=== PATIENT | female | born 1960 | race Caucasian/White ===

== ENCOUNTER → 2017-05-27 | Outpatient (CLI) | payer OTHER | LOC: FIMAGING 09:10 | PROVIDERS: ATTEND Internal Medicine | DX: Z12.31 Encounter for screening mammogram for malignant neoplasm of breast (principal) | CPT/HCPCS: G0202 ==

== ENCOUNTER → 2017-06-27 | Outpatient (CLI) | payer OTHER | LOC: FIMAGING 15:04 | PROVIDERS: ATTEND Internal Medicine Endocrinology, Diabetes & Metabolism | DX: Z13.820 Encounter for screening for osteoporosis (principal); M81.0 Age-related osteoporosis without current pathological fracture; M54.9 Dorsalgia, unspecified; Z78.0 Asymptomatic menopausal state; Z79.890 Hormone replacement therapy ==

== ENCOUNTER → 2018-04-29 | Outpatient (CLI) | payer OTHER | LOC: BMCIMAGING 13:34 | PROVIDERS: ATTEND Physician Assistant | DX: M25.512 Pain in left shoulder (principal) ==

== ENCOUNTER → 2018-05-04 | Outpatient (CLI) | payer OTHER | LOC: BMCIMAGING 14:39 | PROVIDERS: ATTEND Physician Assistant | DX: M50.322 Other cervical disc degeneration at C5-C6 level (principal) ==

== ENCOUNTER 2018-12-23 15:45 | Emergency (ER) | payer OTHER ==
[2018-12-23] MEDS ORDERED: NS 500 ML IV ONE (16:36)
[2018-12-23] MEDS ORDERED: KETOROLAC 30 MG/1 ML SDV IVP ONE (16:37)
--- NOTE | 2018-12-23 16:37 | EDPHY ---
H & P Time Seen by Provider: 12/23/18 16:23 HPI/ROS: CHIEF COMPLAINT: Abdominal pain HISTORY OF PRESENT ILLNESS: The patient is a 58-year-old female presents emergency department with left-sided abdominal pain. Pain is been present for 1 -2 months. Her symptoms come and go. He seemed to be more associated with eating. Her pain is always on the left side. However, it moves up and down on the left side sometimes to her left flank. Patient denies any nausea or vomiting. No fevers or chills. No diarrhea. REVIEW OF SYSTEMS: 10 systems were reveiwed and are negative with the exception of the elements mentioned in the history of present illness. Past Medical/Surgical History: Includes hysterectomy and hip replacement Social history: Patient does not smoke Smoking Status: Never smoked Physical Exam: Vitals noted GENERAL: Well-appearing, in no acute distress, alert. HEENT: Eyes normal to inspection, normal pharynx, no signs of dehydration. NECK: Normal, supple. RESPIRATORY: Clear to auscultation bilaterally, no rales, rhonchi or wheezing. CVS: Regular rate and rhythm, no rubs, murmurs, or gallops. ABDOMEN: Soft, nontender, nondistended, no organomegaly. Benign BACK: Normal to inspection, no CVA tenderness. SKIN: Normal color, no rash, warm, dry. No pallor. EXTREMITIES: No pedal edema, no joint swelling. NEURO/PSYCH: Alert and oriented, normal mood and affect, normal motor sensory exam. Constitutional: Initial Vital Signs Temperature (C) 36.8 C 12/23/18 15:48 Heart Rate 90 12/23/18 15:48 Respiratory Rate 16 12/23/18 15:48 Blood Pressure 134/85 H 12/23/18 15:48 O2 Sat (%) 97 12/23/18 15:48 O2 Delivery Mode Room Air Allergies/Adverse Reactions: No Allergies [NKDA] Allergy (Verified 03/04/13 15:14) SEASONAL Allergy (Intermediate, Uncoded 03/04/13 15:14) POST NASAL DRIP Home Medications: Medication Instructions Recorded NK [No Known Home Meds] 12/23/18 Medical Decision Making - Diagnostics Imaging Results: Imaging Impressions Abdomen/Pelvis CT 12/23/18 16:37 Impression: 1. Nonobstructive calculus lower pole right kidney. 2. No evidence of urinary tract calculus in the left. 3. Mild constipation. Attention: This CT examination is specifically designed to evaluate patients who are clinically suspected of having acute obstructive uropathy. This examination does not use radiographic contrast, and as such, provides only a limited evaluation of the abdomen, pelvis and retroperitoneum. If there is further clinical suspicion for pathological conditions other than obstructive uropathy, a complete CT evaluation of the abdomen and pelvis utilizing intravenous, oral, and rectal contrast should be considered. Findings discussed with Mile Rogers M.D. at 17:30 hour, 12/23/2018. ED Course/Re-evaluation: In the Emergency department I discussed possible etiologies with the patient. I answered all her questions. IV was placed. Laboratory studies and abdominal CT were ordered. Patient's CBC and chemistry unremarkable. LFTs and lipase are normal. UA negative. CT: Please refer the dictated report. Patient has constipation noted. There is a right renal stone that is nonobstructing. No other abnormality noted. I discussed the results with the patient. I answered all her questions. She was given warnings prior to leaving. She will return with worsening symptoms. Differential Diagnosis: Differential includes but is not limited to small-bowel obstruction, perforation , urinary tract infection, pyelonephritis, kidney stone. With left-sided pain is less likely cholecystitis, cholangitis. Lipase was normal. I doubt pancreatitis. - Data Points Laboratory Results: Laboratory Results 12/23/18 16:40 12/23/18 16:40 12/23/18 12/23/18 12/23/18 16:40 16:40 16:00 WBC 5.16 10^3/uL 10^3/uL (3.80-9.50) RBC 5.56 10^6/uL H 10^6/uL (4.18-5.33) Hgb 16.2 g/dL g/dL (12.6-16.3) Hct 48.9 % H % (38.0-47.0) MCV 87.9 fL fL (81.5-99.8) MCH 29.1 pg pg (27.9-34.1) MCHC 33.1 g/dL g/dL (32.4-36.7) RDW 13.1 % % (11.5-15.2) Plt Count 256 10^3/uL 10^3/uL (150-400) MPV 9.7 fL fL (8.7-11.7) Neut % (Auto) 65.6 % % (39.3-74.2) Lymph % (Auto) 26.4 % % (15.0-45.0) [place] % (Auto) 6.8 % % (4.5-13.0) Eos % (Auto) 0.2 % L % (0.6-7.6) Baso % (Auto) 0.8 % % (0.3-1.7) Nucleat RBC Rel Count 0.0 % % (0.0-0.2) Absolute Neuts (auto) 3.39 10^3/uL 10^3/uL (1.70-6.50) Absolute Lymphs (auto) 1.36 10^3/uL 10^3/uL (1.00-3.00) Absolute Monos (auto) 0.35 10^3/uL 10^3/uL (0.30-0.80) Absolute Eos (auto) 0.01 10^3/uL L 10^3/uL (0.03-0.40) Absolute Basos (auto) 0.04 10^3/uL 10^3/uL (0.02-0.10) Absolute Nucleated RBC 0.00 10^3/uL 10^3/uL (0-0.01) Immature Gran % 0.2 % % (0.0-1.1) Immature Gran # 0.01 10^3/uL 10^3/uL (0.00-0.10) Sodium 136 mEq/L mEq/L (135-145) Potassium 4.3 mEq/L mEq/L (3.5-5.2) Chloride 102 mEq/L mEq/L (97-110) Carbon Dioxide 26 mEq/l mEq/l (22-31) Anion Gap 8 mEq/L mEq/L (6-14) BUN 16 mg/dL mg/dL (7-23) Creatinine 0.8 mg/dL mg/dL (0.6-1.0) Estimated GFR > 60 Glucose 93 mg/dL mg/dL (70-100) Calcium 10.3 mg/dL mg/dL (8.5-10.4) Total Bilirubin 0.9 mg/dL mg/dL (0.1-1.4) Conjugated Bilirubin 0.2 mg/dL mg/dL (0.0-0.5) Unconjugated Bilirubin 0.7 mg/dL mg/dL (0.0-1.1) AST 38 IU/L IU/L (14-46) ALT 58 IU/L H IU/L (9-52) Alkaline Phosphatase 82 IU/L IU/L (38-126) Total Protein 7.9 g/dL g/dL (6.3-8.2) Albumin 5.0 g/dL g/dL (3.5-5.0) Lipase 207 IU/L IU/L (23-300) Urine Color COLORLESS Urine Appearance CLEAR Urine pH 6.0 (5.0-7.5) Ur Specific [place] 1.003 (1.002-1.030) Urine Protein NEGATIVE (NEGATIVE) Urine Ketones NEGATIVE (NEGATIVE) Urine Blood NEGATIVE (NEGATIVE) Urine Nitrate NEGATIVE (NEGATIVE) Urine Bilirubin NEGATIVE (NEGATIVE) Urine Urobilinogen NEGATIVE EU EU (0.2-1.0) Ur Leukocyte Esterase NEGATIVE (NEGATIVE) Urine Glucose NEGATIVE (NEGATIVE) Departure - Departure Disposition: Home, Routine, Self-Care Clinical Impression: Constipation Abdominal pain Qualifiers: Abdominal location: left upper quadrant Qualified Code(s): R10.12 - Left upper quadrant pain Condition: Good Instructions: Abdominal Pain (ED) Additional Instructions: Use Metamucil 3 times daily. Return with increasing pain, fever or any other concerns. You need close follow-up with Dr. Ramos Referrals: Dolores Ramos MD [Primary Care Provider] - 5-7 days, call for appt.
[2018-12-23 16:49] LABS: PLATELET COUNT 256 10^3/uL (150-400)
[2018-12-23 17:50] VITALS: BP 117/66
== END 2018-12-23 17:49 | disposition home or self-care (01) ==
DX: K59.00 Constipation, unspecified (principal); N20.2 Calculus of kidney with calculus of ureter
CPT/HCPCS: J1885